=== PATIENT | male | born 1955 | race Two or more races ===

== ENCOUNTER → 2021-03-11 | Outpatient (CLI) | payer BC ==
[2021-03-11 16:39] LABS: Calcium 8.2 mg/dL (8.5-10.1); Potassium 4.1 mmol/L (3.5-5.1)
[2021-03-11 16:45] LABS: BUN/Creatinine Ratio 17.5
== END | disposition home or self-care (01) ==
LOC: LAB 15:20
PROVIDERS: ATTEND Urology
DX: R97.21 Rising PSA following treatment for malignant neoplasm of prostate (principal)
CPT/HCPCS: 36415; 80048; 84153; 84154

== ENCOUNTER → 2022-03-13 | Outpatient (CLI) | payer BC | END | disposition home or self-care (01) | LOC: LAB 06:55 | PROVIDERS: ATTEND Urology | DX: R97.20 Elevated prostate specific antigen [PSA] (principal) | CPT/HCPCS: 84154 ==